=== PATIENT | female | born 1985 | race African-American/Black ===

== ENCOUNTER 2016-06-04 09:04 | Emergency (ER) | payer MEDICAID ==
[~2016-06-04] VITALS: Ht 157.5 cm; Wt 108.0 kg
[2016-06-04 12:27] VITALS: BP 138/93
[2016-06-04] MEDS ORDERED: cefTRIAXone W LIDOCAINE 1 GM IM IM ONE (14:15)
[2016-06-04] MEDS ORDERED: cefTRIAXone SOD 1,000 MG VL IM ONE (14:30)
== END 2016-06-04 14:55 | disposition home or self-care (01) ==
LOC: ER 09:04
DX: J02.9 Acute pharyngitis, unspecified (principal); E66.01 Morbid (severe) obesity due to excess calories; Z68.41 Body mass index [BMI] 40.0-44.9, adult; F17.210 Nicotine dependence, cigarettes, uncomplicated; Z88.6 Allergy status to analgesic agent
CPT/HCPCS: 96372; 99283; J0696

== ENCOUNTER 2017-05-09 16:55 | Emergency (ER) | payer MEDICAID ==
[~2017-05-09] VITALS: Ht 157.5 cm; Wt 106.6 kg
[2017-05-09 19:48] VITALS: BP 155/84
[2017-05-09] MEDS ORDERED: BACITRACIN TOP OINT 1 UD PKG TOP ONE (21:30)
== END 2017-05-09 21:26 | disposition home or self-care (01) ==
LOC: ER 16:58
DX: O26.891 Other specified pregnancy related conditions, first trimester (principal); J02.9 Acute pharyngitis, unspecified; O99.331 Smoking (tobacco) complicating pregnancy, first trimester; Z3A.01 Less than 8 weeks gestation of pregnancy
CPT/HCPCS: 36415; 84702

== ENCOUNTER 2017-10-19 19:58 | Observation (INO) | payer MEDICAID, OTHER ==
[2017-10-19 21:26] LABS: Urine Bacteria NONE SEEN /hpf (None Seen); Urine Blood 1+ /uL (Negative); Urine Mucus FEW (None Seen); Urine Specific Gravity 1.028 (1.001-1.035); Urine WBC 10 /hpf (0 - 5)
[2017-10-19 21:45] LABS: Alcohol, Urine < 3.0 mg/dL (0-5); Amphetamine Screen, Urine NEGATIVE (NEGATIVE); Barbiturate Scree,Urine NEGATIVE (NEGATIVE); Benzodiazephine Screen, Urine NEGATIVE (NEGATIVE); Cannabinoid Screen, Urine NEGATIVE (NEGATIVE); Cocaine Screen, Urine NEGATIVE (NEGATIVE); Opiate Scree,Urine NEGATIVE (NEGATIVE); Phencyclidine Screen, Urine NEGATIVE (NEGATIVE)
== END 2017-10-19 21:30 | disposition home or self-care (01) | DRG 566 ==
LOC: LDRP 19:58
PROVIDERS: ADMIT Specialist; ATTEND Specialist
DX: O26.853 Spotting complicating pregnancy, third trimester (principal); Z3A.28 28 weeks gestation of pregnancy
CPT/HCPCS: 59025; 80307; 81001; 81002; G0378

== ENCOUNTER 2018-12-16 12:47 | Emergency (ER) | payer MEDICAID, OTHER ==
[~2018-12-16] VITALS: Ht 157.5 cm; Wt 115.2 kg
[2018-12-16 14:05] LABS: Urine Bacteria FEW /hpf (None Seen); Urine Blood Negative /uL (Negative); Urine Mucus FEW (None Seen); Urine Specific Gravity 1.025 (1.001-1.035); Urine WBC 55 /hpf (0 - 5)
[2018-12-16 15:02] VITALS: BP 139/79
== END 2018-12-16 16:47 | disposition home or self-care (01) ==
LOC: ER 12:47
DX: J06.9 Acute upper respiratory infection, unspecified (principal); N39.0 Urinary tract infection, site not specified; F17.210 Nicotine dependence, cigarettes, uncomplicated; Z88.5 Allergy status to narcotic agent; Z88.8 Allergy status to other drugs, medicaments and biological substances; Z90.49 Acquired absence of other specified parts of digestive tract
CPT/HCPCS: 81001; 81025

== ENCOUNTER 2022-02-18 13:49 | Emergency (ER) | payer MEDICAID ==
[~2022-02-18] VITALS: Ht 157.5 cm; Wt 114.0 kg
[2022-02-18 15:33] LABS: Urine Specific Gravity 1.035 (1.001-1.035)
[2022-02-18 15:34] LABS: Urine Blood Normal /uL (Negative)
[2022-02-18 15:42] LABS: Basophils # (auto) 0.1 10 ^3/uL (0-0.2); Basophils % (auto) 0.7 % (0.0-2.0); Eosinophils # (auto) 0.3 10 ^3/uL (0-0.8); Eosinophils % (auto) 2.1 % (0.0-7.0); Hematocrit 36.9 % (36.0-46.0); Hemoglobin 12.5 g/dL (12.2-16.2); Lymphocytes # (auto) 2.5 10 ^3/uL (0.4-5.4); Lymphocytes % (auto) 20.7 % (10.0-50.0); Mean Corpuscular Hemoglobin 30.5 pg (28.0-32.0); Mean Corpuscular Hgb Conc. 33.8 g/dL (32.0-36.0); Mean Corpuscular Volume 90.4 fL (80.0-100.0); Monocytes # (auto) 0.9 10 ^3/uL (0-1.3); Neutrophils # (auto) 8.5 10 ^3/uL (1.6-8.6); Neutrophils % (auto) 69.5 % (37.0-80.0); Nucleated Red Blood Cells % 0.1 %; Red Blood Cells 4.08 10^6/uL (4.0-5.20); Red Cell Distribution Width 12.6 % (11.8-14.3); White Blood Cell 12.2 10^3/uL (4.4-10.8)
[2022-02-18] MEDS ORDERED: KETOROLAC TROMETH 60MG/2ML VIAL IM ONE (16:00)
[2022-02-18 16:04] LABS: Albumin 3.4 g/dL (3.4-5.0); BUN/Creatinine Ratio 24.6; Calcium 8.6 mg/dL (8.5-10.1); Potassium 3.5 mmol/L (3.5-5.1)
[2022-02-18 16:07] LABS: Bilirubin, Total 0.2 mg/dL (0.2-1.0); Total Protein 6.9 g/dL (6.4-8.2)
[2022-02-18] MEDS ORDERED: METR500T PO (16:55)
[2022-02-18] MEDS ORDERED: HYDR-4798 PO (16:55)
[2022-02-18] MEDS ORDERED: LEVO500T31 PO (16:55)
[2022-02-18 17:11] LABS: Urine Bacteria FEW /hpf (None Seen)
[2022-02-18 17:22] VITALS: BP 162/97
== END 2022-02-18 17:23 | disposition home or self-care (01) ==
LOC: ER 13:49
DX: K57.92 Diverticulitis of intestine, part unspecified, without perforation or abscess without bleeding (principal); F17.210 Nicotine dependence, cigarettes, uncomplicated; Z90.710 Acquired absence of both cervix and uterus
CPT/HCPCS: 36415; 74176; 80053; 81003; 81015; 85025; 96372; 99284; J1885

== ENCOUNTER 2022-06-13 18:57 | Emergency (ER) | payer MEDICAID ==
[~2022-06-13] VITALS: Ht 157.5 cm; Wt 113.0 kg
[~2022-06-13 18:57] MED LIST: HYDR-4798 PO; LEVO500T31 PO; METR500T PO
[2022-06-13 19:08] VITALS: BP 140/92
[2022-06-13] MEDS ORDERED: DexAMETHasone SOD PHOS 10MG/1ML VIAL INJ IM ONE (19:45)
[2022-06-13 19:49] LABS: Urine Bacteria NONE SEEN /hpf (None Seen); Urine Blood Negative /uL (Negative); Urine Mucus FEW (None Seen); Urine Specific Gravity 1.025 (1.001-1.035); Urine WBC 5 /hpf (0 - 5)
[2022-06-13] MEDS ORDERED: PRED20TA2 PO (21:28)
[2022-06-13] MEDS ORDERED: NITR-87 PO (21:28)
== END 2022-06-13 21:57 | disposition home or self-care (01) ==
LOC: ER 18:57
DX: R20.2 Paresthesia of skin (principal); N39.0 Urinary tract infection, site not specified; F17.210 Nicotine dependence, cigarettes, uncomplicated; Z90.49 Acquired absence of other specified parts of digestive tract; Z90.710 Acquired absence of both cervix and uterus; Z79.2 Long term (current) use of antibiotics; Z79.899 Other long term (current) drug therapy; Z88.5 Allergy status to narcotic agent
CPT/HCPCS: 72040; 81001; 96372; 99284; J1100

== ENCOUNTER 2024-10-04 05:23 | Inpatient (IN) | payer MEDICAID ==
[~2024-10-04] VITALS: Ht 157.5 cm; Wt 88.9 kg
[~2024-10-04 05:23] MED LIST changes: +NITR-87 PO; +PRED20TA2 PO
[2024-10-04 06:54] LABS: Hematocrit 40.6 % (36.0-46.0); Hemoglobin 14.2 g/dL (12.2-16.2); Mean Corpuscular Hemoglobin 32.2 pg (28.0-32.0); Mean Corpuscular Volume 92.2 fL (80.0-100.0); Nucleated Red Blood Cells % 0.0 %
--- NOTE | 2024-10-04 06:54 | ED.PDOC ---
GI ASSESSMENT HPI Comments 39 y/o F, presents to the ED for CC of abdominal pain. Patient states, she has been experiencing LLQ abdominal pain that radiates to her left lower back onset, yesterday (10/04/24). Patient relays, pain to be sharp and stabbing in nature. Patient comments, that she hs been unable to have a bowel movement in x2days. Patient denies fever, chills, dysuria, or hematuria. No other associated symptoms, modifiers, recent injuries or sick contacts present at this time. Chief Complaint: Abdominal Pain Time Seen by MD: 06:45 Primary Care Provider: unknown Reviewed Notes: Nurses Notes, Medications, Allergies Allergies: Coded Allergies: Codeine (Verified Allergy, Unknown, 12/16/18) Oxycodone (Verified Allergy, Unknown, 07/11/15) Uncoded Allergies: UNKNOWN ABX (Allergy, Unknown, 06/04/16) Home Meds Active Scripts Prednisone (Prednisone) 20 Mg Tab, 60 MG PO DAILY for 5 Days, #15 MG Prov:JAXSON ELLINGTON PAC 06/13/22 Nitrofurantoin Monohydrate Mac (Macrobid) 100 Mg Cap, 100 MG PO BID for 3 Days, #6 CAP Prov:JAXSON ELLINGTON PAC 06/13/22 Hydrocodone-Acetaminophen (Hydrocodone Bitartrate/AC 10-325 mg) 1 Tab Tab, 1 TAB PO Q6HPRN PRN, #20 TAB Prov:GIANNI EARL DO 02/18/22 Metronidazole (Flagyl) 500 Mg Tab, 500 MG PO TID for 10 Days, #30 TAB Prov:GIANNI EARL DO 02/18/22 Levofloxacin (Levaquin) 500 Mg Tab, 500 MG PO DAILY for 10 Days, #10 TAB Prov:GIANNI EARL DO 02/18/22 Information Source: Patient Mode of Arrival: Wheelchair Timing: Days Duration: Since onset Prehospital treatment: None Quality: Sharp, Stabbing Vomitus: Watery Stool: Watery Severity: Moderate Recent: None Recent Hx of: None Pain Location: LLQ Modifying Factors: Nothing Associated sign and symptoms: Nausea, Vomiting, Diarrhea, Abdominal Pain Past Medical History PAST MEDICAL HISTORY: Denies Surgical History: Appendectomy, Hysterectomy 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 History Family History Family History: Unknown Social History Smoker: Cigarettes, Less Than 1 Pack/Day Alcohol: Denies ETOH Use Drugs: Marijuana Lives In: Home Constitutional: denies: chills, diaphoresis, fatigue, fever, malaise, sweats, weakness, others EENTM: denies: blurred vision, double vision, ear bleeding, ear discharge, ear drainage, ear pain, ear ringing, eye pain, eye redness, hearing loss, mouth pain, mouth swelling, nasal discharge, nose bleeding, nose congestion, nose pain, photophobia, tearing, throat pain, throat swelling, voice changes, others Respiratory: denies: cough, hemoptysis, orthopnea, SOB at rest, shortness of breath, SOB with excertion, stridor, wheezing, others Cardiovascular: denies: chest pain, dizzy spells, diaphoresis, Dyspnea on exertion, edema, irregular heart beat, left arm pain, lightheadedness, palpitations, PND, syncope, others Gastrointestinal: reports: abdominal pain, diarrhea, nausea, vomiting; denies: abdomen distended, blood streaked bowels, constipated, dysphagia, difficulty swallowing, hematemesis, melena, poor appetite, poor fluid intake, rectal bleeding, rectal pain, others Genitourinary: denies: abnormal vagina bleeding, burning, dyspareunia, dysuria, flank pain, frequency, hematuria, incontinence, pain, , vagina discharge, urgency, others Neurological: denies: dizziness, fainting, headache, left sided numbness, left sided weakness, numbness, paresthesia, pre-existing deficit, right sided numbness, right sided weakness, seizure, speech problems, tingling, tremors, weakness, others Musculoskeletal: reports: back pain; denies: gout, joint pain, joint swelling, muscle pain, muscle stiffness, neck pain, others Integumetry: denies: bruises, change in color, change in hair/nails, dryness, laceration, lesions, lumps, rash, wounds, others Allergic/Immunocompromised: denies: Difficulty Healing, Frequent Infections, Hives, Itching, others Hematologic/Lymphatic: denies: anemia, blood clots, easy bleeding, easy bruising, swollen glands, others Endocrine: denies: excessive hunger, excessive sweating, excessive thirst, excessive urination, flushing, intolerance to cold, intolerance to heat, unexplained weight gain, unexplained weight loss, others Psychiatric: denies: anxiety, bipolar disorder, depression, hopeless, panic disorder, schizophrenia, sleepless, suicidal, others All Other Systems: Reviewed and Negative Physical Exam General Appearance: Moderate Distress HEENT: Pharynx Normal Neck: Normal Inspection Respiratory: No Respiratory Distress Cardiovascular: No Edema Breast Exam: Deferred Gastrointestinal: LLQ Genitalia: Deferred Pelvic: Deferred Rectal: Deferred Extremities: No pedal edema Neurologic: No Motor Deficits Cerebellar Function: NOT DONE Reflexes: NOT DONE Skin: Normal Color Lymphatic: NOT DONE Was a procedure done? Was a procedure done?: No GI differential Dx Differential Diagnosis: PID, Urolithiasis, Electrolyte Imbalance, Viral, Hypovolemia X-Ray, Labs, Meds, VS Vital Signs Date Time Temp Pulse Resp B/P (MAP) Pulse Ox O2 Delivery O2 Flow Rate FiO2 10/04/24 11:13 68 13 151/77 (101) 99 10/04/24 10:46 63 14 145/95 10/04/24 10:03 60 20 99 Room Air* 0 21 10/04/24 09:09 99 20 145/76 10/04/24 09:07 98.2 59 20 145/76 (99) 99 98.2 10/04/24 07:26 80 18 146/78 10/04/24 07:25 18 98 Room Air* 0 21 10/04/24 06:56 73 20 146/78 10/04/24 06:50 98.5 73 20 140/78 (98) 99 98.5 10/04/24 06:50 73 20 99 10/04/24 05:40 98.5 81 20 149/90 (109) 96 98.5 Lab Test 10/04/24 06:22 10/04/24 06:13 Range/Units White Blood Count 10.1 4.4-10.8 10^3/uL Red Blood Count 4.40 4.0-5.20 10^6/uL Hemoglobin 14.2 12.2-16.2 g/dL Hematocrit 40.6 36.0-46.0 % Mean Corpuscular Volume 92.2 80.0-100.0 fL Mean Corpuscular Hemoglobin 32.2 H 28.0-32.0 pg Mean Corpuscular Hemoglobin Concent 34.9 32.0-36.0 g/dL Red Cell Distribution Width 13.5 11.8-14.3 % Platelet Count 332 140-450 10^3/uL Mean Platelet Volume 8.5 6.9-10.8 fL Neutrophils (%) (Auto) 72.2 37.0-80.0 % Lymphocytes (%) (Auto) 21.6 10.0-50.0 % Monocytes (%) (Auto) 5.1 0.0-12.0 % Eosinophils (%) (Auto) 0.6 0.0-7.0 % Basophils (%) (Auto) 0.5 0.0-2.0 % Neutrophils # (Auto) 7.3 1.6-8.6 10 ^3/uL Lymphocytes # (Auto) 2.2 0.4-5.4 10 ^3/uL Monocytes # (Auto) 0.5 0-1.3 10 ^3/uL Eosinophils # (Auto) 0.1 0-0.8 10 ^3/uL Basophils # (Auto) 0 0-0.2 10 ^3/uL Nucleated Red Blood Cells 0.0 % Sodium Level 140 136-145 mmol/L Potassium Level 3.4 L 3.5-5.1 mmol/L Chloride Level 108 H 98-107 mmol/L Carbon Dioxide Level 23 20-31 mmol/L Anion Gap 9 5-15 Blood Urea Nitrogen 11 9-23 mg/dL Creatinine 0.63 0.550-1.02 mg/dL Glomerular Filtration Rate Calc 116 >90 mL/min BUN/Creatinine Ratio 17.5 10.0-20.0 Serum Glucose 92 74-106 mg/dL Lactic Acid Level 1.5 0.4-2.0 mmol/L Calcium Level 9.8 8.7-10.4 mg/dL Total Bilirubin 0.4 0.2-1.0 mg/dL Aspartate Amino Transferase (AST) 16 13-40 U/L Alanine Aminotransferase (ALT) 12 7-40 U/L Alkaline Phosphatase 54 46-116 U/L Total Protein 7.2 5.7-8.2 g/dL Albumin 4.8 3.2-4.8 g/dL Urine Color Yellow Yellow Urine Clarity Ex.turbid Clear Urine pH 6.0 5.0-9.0 Urine Specific [place] 1.033 1.001-1.035 Urine Protein 1+ H Negative Urine Ketones Trace Negative Urine Blood Negative Negative /uL Urine Nitrite Negative Negative Urine Bilirubin Negative Negative Urine Urobilinogen 3 H Negative mg/dL Urine Leukocyte Esterase 3+ Negative /uL Urine RBC 20 0 - 4 /hpf Urine Microscopic WBC 82 H 0-5 /HPF Urine Squamous Epithelial Cells Many <5 /hpf Urine Bacteria Few H None Seen /hpf Urine Mucus Many None Seen Urine Glucose Normal Normal mg/dL Urine Test Negative Negative Current Medications Medications (Trade) Dose Ordered Sig/Linh Route Start Time Stop Time Status Last Admin Sodium Chloride 1,000 ml @ 1,000 mls/hr Q1H ONCE IV 10/04/24 06:45 10/04/24 07:44 DC 10/04/24 06:55 Ondansetron HCl (Zofran) 4 mg ONCE ONCE IV 10/04/24 06:45 10/04/24 06:46 DC 10/04/24 06:56 Morphine Sulfate 4 mg ONCE ONCE IV 10/04/24 06:45 10/04/24 06:46 DC 10/04/24 06:56 Pantoprazole Sodium (Protonix) 40 mg ONCE ONCE IV 10/04/24 06:45 10/04/24 06:46 DC 10/04/24 06:55 Ketorolac Tromethamine (Toradol Injection) 15 mg ONCE ONCE IV 10/04/24 07:45 10/04/24 07:57 DC 10/04/24 07:59 Cefepime HCl 50 ml @ 12.5 mls/hr ONCE ONCE IV 10/04/24 07:45 10/04/24 11:44 DC 10/04/24 09:10 Haloperidol Lactate (Haldol) 10 mg ONCE ONCE IM 10/04/24 07:45 10/04/24 07:57 DC 10/04/24 08:04 Morphine Sulfate 4 mg ONCE ONCE IV 10/04/24 08:30 10/04/24 08:31 DC 10/04/24 09:[address] [address] Ph: [phone] DIAGNOSTIC IMAGING Diagnostic Imaging Report : [id number] Signed PATIENT: DON MONTEZCCT: [id number] UNIT: [id number] : 1985 LOC: ER ROOM / BED: / AGE / SEX: 39 / F ADM STATUS: REG ER SERVICE ORDERING PHYSICIAN: ALYCIA POOL MD PROCEDURE(s): ABPL - CT AB PEL WO CON-NO ORAL OR IV REASON: left flank pain ORDER NUMBER(s): [id number], ACCESSION NUMBER(s): [id number] CT CT AB PEL WO CON-NO ORAL OR IV INDICATION: left flank pain EXAM DATE: 10/04/2024 07:44 AM COMPARISON: CT ABD PELVIS WO CONTRAST on DOS: 02/18/22 RADIATION DOSE: CTDIvol: 19.73 mGy, DLP: 1067.58 mGy*cm PROCEDURE: Helical CT images were obtained of the abdomen and pelvis without IV contrast Sagittal and coronal reconstructions are provided. ORAL CONTRAST: None. ADDITIONAL IMAGES / REFORMATS: None All CT scans at this medical facility are performed using dose modulation techniques as appropriate to a performed exam including the following: Automated exposure control was utilized; adjustment of the MA and/or KV according to patient size; and use of iterative reconstruction technique. FINDINGS: LUNG BASE: Normal. LIVER: Normal. GALLBLADDER AND BILIARY TREE: No calcified gallstones. Normal caliber wall. No intra- or extrahepatic biliary ductal dilation. PANCREAS: Normal. SPLEEN: Normal. BOWEL: Moderate colonic diverticulosis with mild sigmoid colonic diverticulitis. ADRENALS: Normal. KIDNEYS AND URETER: Punctate nonobstructive left kidney stone. BLADDER: Normal. REPRODUCTIVE ORGANS: 5 cm left ovary cyst. Absent uterus. LYMPH NODES:No lymphadenopathy. PERITONEUM: No ascites or free air. No other fluid collection. VESSELS: Scattered atherosclerotic calcifications are noted. RETROPERITONEUM: Normal. ABDOMINAL WALL: Normal. BONES: Scattered osseous degenerative changes are noted. IMPRESSION: Moderate colonic diverticulosis with mild sigmoid colonic diverticulitis. Punctate nonobstructive left kidney stone. ATED BY: FRANCISCO J EASON MD DICTATED DATE/TIME: 10/04/24817 SIGNED BY: FRANCISCO J EASON MD SIGNED DATE/TIME: 10/04/24817 CC: Time of 1ST Reevaluation: 07:15 Reevaluation 1ST: Unchanged Patient Education/Counseling: Diagnosis, Treatment Family Education/Counseling: No Family Present SEPSIS Sepsis Screen Date sepsis recognized/suspect: Oct 04, 2024 Time Sepsis recognized/suspect: 0540 Recent Procedure: No On Antibiotic Therapy: No Respiratory Rate >20: No Heart Rate >90: No Temp<36 C (96.8 F) or >38.3 C: No SBP <90 or MAP <65 mmHG: No New Acute Mental Status Change: No Is the patient on CPAP, BIPAP,: No Physician Orders Ct Ab Pel Wo Con-No Oral Or Iv (10/04/24 07:42) Pelvic (10/04/24 08:24) Morphine Sulfate Injection (10/04/24 08:30) * Sprayer Operator Consultation (10/04/24 11:59) Vital Signs Date Time Temp Pulse Resp B/P (MAP) Pulse Ox O2 Delivery O2 Flow Rate FiO2 10/04/24 11:13 68 13 151/77 (101) 99 10/04/24 10:46 63 14 145/95 10/04/24 10:03 60 20 99 Room Air* 0 21 10/04/24 09:09 99 20 145/76 10/04/24 09:07 98.2 59 20 145/76 (99) 99 98.2 10/04/24 07:26 80 18 146/78 10/04/24 07:25 18 98 Room Air* 0 21 10/04/24 06:56 73 20 146/78 10/04/24 06:50 98.5 73 20 140/78 (98) 99 98.5 10/04/24 06:50 73 20 99 10/04/24 05:40 98.5 81 20 149/90 (109) 96 98.5 Laboratory Tests Test 10/04/24 06:22 Lactic Acid Level 1.5 mmol/L (0.4-2.0) White Blood Count 10.1 10^3/uL (4.4-10.8) Medications Medications Dose Ordered Sig/Linh Route Start Time Stop Time Status Last Admin Dose Admin Cefepime HCl 50 ml @ 12.5 mls/hr ONCE ONCE IV 10/04/24 07:45 10/04/24 11:44 DC 10/04/24 09:10 Haloperidol Lactate 10 mg ONCE ONCE IM 10/04/24 07:45 10/04/24 07:57 DC 10/04/24 08:04 Ketorolac Tromethamine 15 mg ONCE ONCE IV 10/04/24 07:45 10/04/24 07:57 DC 10/04/24 07:59 Morphine Sulfate 4 mg ONCE ONCE IV 10/04/24 06:45 10/04/24 06:46 DC 10/04/24 06:56 Morphine Sulfate 4 mg ONCE ONCE IV 10/04/24 08:30 10/04/24 08:31 MD 10/04/24 09:09 Ondansetron HCl 4 mg ONCE ONCE IV 10/04/24 06:45 10/04/24 06:46 DC 10/04/24 06:56 Pantoprazole Sodium 40 mg ONCE ONCE IV 10/04/24 06:45 10/04/24 06:46 DC 10/04/24 06:55 Sodium Chloride 1,000 ml @ 1,000 mls/hr Q1H ONCE IV 10/04/24 06:45 10/04/24 07:44 DC 10/04/24 06:55 Departure 1 Departure Time of Disposition: 12:01 (Patient presented with abdominal pain that was co ncerning for possible appendicits, gastritis, cholecystitis, colitis, gastroenteritis, sbo, or orther possible surgical emergency. Data: 1. I ordered and reviewed the result of at least 3 labs including a CBC, BMP, and Urinalysis. 2. I independently interpreted the following tests: CT Abdoment and Pelvis is concerning for complex cyst of the left ovary .Risk:This patient has a high risk of morbidity due to further diagnostic testing or treatment and may suffer from an acute abdominal process disorder. Workup reveals intractable abdominal pain and complex cyst of the left ovary and patient should be admitted for further workup. and possible expert consultation. ) Impression: Primary Impression: Complex cyst of left ovary Additional Impressions: Intractable abdominal pain Complicated UTI (urinary tract infection) Disposition: ADMITTED INPATIENT Admit to: Med Surg Condition: Serious Critical Care Note Critical Care Time?: Yes Critical care comment: Intractable abdominal pain Authorized and Performed by: Alycia Pool MD Total critical care time: Approximately 42 minutes Due to a high probability of clinically significant, life threatening deterioration, the patient required my highest level of preparedness to intervene emergently and I personally spent this critical care time directly and personally managing the patient. This critical care time included obtaining a history; examining the patient; pulse oximetry; ordering and review of studies; arranging urgent treatment with development of a management plan; evaluation of patient's response to treatment; frequent reassessment; and, discussions with other providers. This critical care time was performed to assess and manage the high probability of imminent, life-threatening deterioration that could result in multi-organ failure. It was exclusive of separately billable procedures and treating other patients and teaching time. Please see my other sections and the rest of the note for further information on patient assessment and treatment. Stability Stability form required: No Heart Score Heart Score: Heart Score Response (Comments) Value History N/A 0 EKG N/A 0 Age N/A 0 Risk Factors N/A 0 Troponin N/A 0 Total 0 I personally scribed for ALYCIA POOL MD ([email or web address]) on 10/04/24 at 06:54. Electronically submitted by Sarah Costa ([email or web address]). I personally scribed for ALYCIA POOL MD ([email or web address]) on 10/04/24 at 08:24. Electronically submitted by Sarah Costa ([email or web address]). ALYCIA POOL MD Oct 04, 2024 06:54
[2024-10-04] MEDS: PANTOPRAZOLE 40 MG/10 ML VIAL INJ IV ONE (06:55)
[2024-10-04] MEDS: SODIUM CHLORIDE 0.9% 1,000 ML IV ONE (06:55)
[2024-10-04] MEDS: ONDANSETRON HCL 4 MG/2 ML VIAL IV ONE ×2 (06:56→13:13)
[2024-10-04] MEDS: MORPHINE SULFATE 4 MG/ML SYR/VIAL IV ONE ×3 (06:56→13:14)
[2024-10-04 07:16] LABS: Alanine Aminotransferase 12 U/L (7-40); Alkaline Phosphatase 54 U/L (46-116); Anion Gap 9 (5-15); BUN/Creatinine Ratio 17.5 (10.0-20.0); Blood Urea Nitrogen 11 mg/dL (9-23); Calcium 9.8 mg/dL (8.7-10.4); Carbon Dioxide 23 mmol/L (20-31); Glucose 92 mg/dL (74-106); Sodium 140 mmol/L (136-145); Total Protein 7.2 g/dL (5.7-8.2)
[2024-10-04 07:17] LABS: Bilirubin, Total 0.4 mg/dL (0.2-1.0)
[2024-10-04 07:20] LABS: Albumin 4.8 g/dL (3.2-4.8); Chloride 108 mmol/L (98-107); Potassium 3.4 mmol/L (3.5-5.1)
[2024-10-04 07:25] VITALS: RESP 18; O2SAT 98
[2024-10-04 07:30] LABS: Urine Protein, UAD 1+ (Negative)
[2024-10-04] MEDS: KETOROLAC TROMETH 30 MG/ML 1ML VIAL IV ONE (07:59)
[2024-10-04] MEDS: HALOPERIDOL LACTATE 5 MG/ML INJ VIAL IM ONE (08:04)
--- NOTE | 2024-10-04 08:21 | DVH ---
CT CT AB PEL WO CON-NO ORAL OR IV INDICATION: left flank pain EXAM DATE: 10/04/2024 07:44 AM COMPARISON: CT ABD PELVIS WO CONTRAST on DOS: 02/18/22 RADIATION DOSE: CTDIvol: 19.73 mGy, DLP: 1067.58 mGy*cm PROCEDURE: Helical CT images were obtained of the abdomen and pelvis without IV contrast Sagittal and coronal reconstructions are provided. ORAL CONTRAST: None. ADDITIONAL IMAGES / REFORMATS: None All C T scans at this medical facility are performed using dose modulation techniques as appropriate to a p erformed exam including the following: Automated exposure control was utilized; adjustment of the MA and/or KV according to patient size; and use of iterative reconstruction technique. FINDINGS: LUNG BASE: Normal. LIVER: Normal. GALLBLADDER AND BILIARY TREE: No calcified gallstones. Normal caliber wall. No intra- or extrahepatic biliary ductal dilation. PANCREAS: Normal. SPLEEN: Normal. BOWEL: Moderate colonic diverticulosis with mild sigmoid colonic diverticulitis. ADRENALS: Normal. KIDNEYS AND URETER: Punctate nonobstructive left kidney stone. BLADDER: Normal. REPRODUCTIVE ORGANS: 5 cm left ovary cyst. Absent uterus. LYMPH NODES:No lymphadenopathy. PERITONEUM: No ascites or free air. No other fluid collection. VESSELS: Scattered atherosclerotic calcifications are noted. RETROPERITONEUM: Normal. ABDOMINAL WALL: Normal. BONES: Scattered osseous degenerative changes are noted. IMPRESSION: Moderate colonic diverticulosis with mild sigmoid colonic diverticulitis. Punctate nonobstructive left kidney stone.
[2024-10-04] MEDS: CEFEPIME 2GM/50ML NS 50 ML IV ONE (09:10)
[2024-10-04 10:03] VITALS: PULSE 60; RESP 18; RESP 20; O2SAT 98; O2SAT 99
--- NOTE | 2024-10-04 11:40 | DVH ---
Technique: Real-time ultrasound images through the pelvis using a transabdominal transducer. For bett er evaluation of the ovaries and endometrial stripe, an endovaginal transducer was used. Indication: left abdominal pain, larst cyst Comparison: None Findings: The uterus is nonvisualized. Right ovary nonvisualized. Left ovary measures 7.7 x 5 x 5.4 cm. Normal flow on color doppler images. There left ovarian cystic lesion measuring 6.5 cm with internal echoes. There is no significant free fluid in the pelvis. Impression: Complex appearing left ovarian cystic lesion with internal echoes measuring 6.5 cm. Recommend MRI pe lvis with and without contrast and inbound sales advisor consultation exclude an ovarian neoplasm/ complex cystic lesio n. Hysterectomy. Right ovary nonvisualized.
[2024-10-04] MEDS ORDERED: HYDROcodone-ACET 5/325MG TAB PO PRN (14:15)
[2024-10-04] MEDS ORDERED: ONDANSETRON HCL 4 MG/2 ML VIAL IV PRN (14:15)
[2024-10-04] MEDS ORDERED: ACETAMINOPHEN 325 MG TAB PO PRN (14:15)
[2024-10-04] MEDS ORDERED: DOCUSATE SOD 100 MG CAP PO PRN (14:15)
--- NOTE | 2024-10-04 14:24 | DVHHP2 ---
History of Present Illness Reason for Visit: Abdominal pain History of Present Illness Lauryn Hadley is a 39-year-old female with past medical history of diverticulosis, and colitis, who came to the hospital for abdominal pain. Patient states she has been experiencing LLQ pain since yesterday. He pain was worsening prompting her to come to the hospital. She has had a previous hysterectomy. Past Surgical History: Appendectomy, Hysterectomy, Other (Left wrist) Smoke: No ALCOHOL: none Drugs: Marijuana Lives: with Family Domestic Violence: Neg Review of Systems Constitutional: No: Fever, Chills, Sweats, Weakness, Malaise, Other Eyes: No: Pain, Vision change, Conjunctivae inflammation, Eyelid inflammation, Other, Redness ENT: No: Ear pain, Ear discharge, Nose pain, Nose discharge, Nose congestion, Mouth pain, Mouth swelling, Throat pain, Throat swelling, Other Respiratory: No: Cough, Dry, Shortness of breath, SOB with excertion, Wheezing, Hemoptysis, Pleuritic Pain, Sputum, Wheezing, Other Cardiovascular: No: Chest Pain, Palpitations, Orthopnea, Paroxysmal Noc. Dyspnea, Edema, Lt Headedness, Other Gastrointestinal: Abdominal Pain (LLQ); No: Nausea, Vomiting, Diarrhea, Constipation, Melena, Hematochezia, Other Genitourinary: No Dysuria, No Frequency, No Incontinence, No Hematuria, No Rete ntion, No Other Musculoskeletal: No: other, neck pain, shoulder pain, arm pain, back pain, hand pain, leg pain, foot pain Skin: No: Rash, Lesions, Jaundice, Bruising, Other Neurological: No: Weakness, Numbness, Incoordination, Change in speech, Confusion, Seizures, Other Allergies: Coded Allergies: Codeine (Verified Allergy, Unknown, 12/16/18) Oxycodone (Verified Allergy, Unknown, 07/11/15) Uncoded Allergies: UNKNOWN ABX (Allergy, Unknown, 06/04/16) Medications Current Medications Medications Dose Ordered Sig/Linh Route Start Time Stop Time Status Last Admin Dose Admin Acetaminophen/ Hydrocodone Bitart 1 tab Q4HP PRN PO 10/04/24 14:15 UNV Ondansetron HCl 4 mg Q4HP PRN IV 10/04/24 14:15 UNV Docusate Sodium 100 mg BIDPRN PRN PO 10/04/24 14:15 UNV Acetaminophen 650 mg Q6HP PRN PO 10/04/24 14:15 UNV Morphine Sulfate 2 mg Q4HPRN PRN IV 10/04/24 14:15 UNV Exam Vital Signs Vital Signs Date Time Temp Pulse Resp B/P (MAP) Pulse Ox O2 Delivery O2 Flow Rate FiO2 10/04/24 13:55 101 14 163/97 10/04/24 13:13 99 10/04/24 10:03 Room Air* 0 21 10/04/24 09:07 98.2 98.2 General Appearance: Alert, Oriented X3, Cooperative, mild distress HEENT: Atraumatic Respiratory: Clear to auscultation Cardiovascular: Regular rate, Normal S1, Normal S2, No murmurs Abdominal: Normal bowel sounds, Soft, No tenderness Extremities: No clubbing, No cyanosis, No edema, Normal pulses Skin: No rashes, No breakdown, No significant lesion Neuro: Normal gait, Normal speech, Strength at 5/5 X4 ext, Normal tone Psych/Mental Status: Mental status NL, Mood NL Labs/Xrays Labs Test 10/04/24 06:22 10/04/24 06:13 Range/Units White Blood Count 10.1 4.4-10.8 10^3/uL Red Blood Count 4.40 4.0-5.20 10^6/uL Hemoglobin 14.2 12.2-16.2 g/dL Hematocrit 40.6 36.0-46.0 % Mean Corpuscular Volume 92.2 80.0-100.0 fL Mean Corpuscular Hemoglobin 32.2 H 28.0-32.0 pg Mean Corpuscular Hemoglobin Concent 34.9 32.0-36.0 g/dL Red Cell Distribution Width 13.5 11.8-14.3 % Platelet Count 332 140-450 10^3/uL Mean Platelet Volume 8.5 6.9-10.8 fL Neutrophils (%) (Auto) 72.2 37.0-80.0 % Lymphocytes (%) (Auto) 21.6 10.0-50.0 % Monocytes (%) (Auto) 5.1 0.0-12.0 % Eosinophils (%) (Auto) 0.6 0.0-7.0 % Basophils (%) (Auto) 0.5 0.0-2.0 % Neutrophils # (Auto) 7.3 1.6-8.6 10 ^3/uL Lymphocytes # (Auto) 2.2 0.4-5.4 10 ^3/uL Monocytes # (Auto) 0.5 0-1.3 10 ^3/uL Eosinophils # (Auto) 0.1 0-0.8 10 ^3/uL Basophils # (Auto) 0 0-0.2 10 ^3/uL Nucleated Red Blood Cells 0.0 % Sodium Level 140 136-145 mmol/L Potassium Level 3.4 L 3.5-5.1 mmol/L Chloride Level 108 H 98-107 mmol/L Carbon Dioxide Level 23 20-31 mmol/L Anion Gap 9 5-15 Blood Urea Nitrogen 11 9-23 mg/dL Creatinine 0.63 0.550-1.02 mg/dL Glomerular Filtration Rate Calc 116 >90 mL/min BUN/Creatinine Ratio 17.5 10.0-20.0 Serum Glucose 92 74-106 mg/dL Lactic Acid Level 1.5 0.4-2.0 mmol/L Calcium Level 9.8 8.7-10.4 mg/dL Total Bilirubin 0.4 0.2-1.0 mg/dL Aspartate Amino Transferase (AST) 16 13-40 U/L Alanine Aminotransferase (ALT) 12 7-40 U/L Alkaline Phosphatase 54 46-116 U/L Total Protein 7.2 5.7-8.2 g/dL Albumin 4.8 3.2-4.8 g/dL Urine Color Yellow Yellow Urine Clarity Ex.turbid Clear Urine pH 6.0 5.0-9.0 Urine Specific [place] 1.033 1.001-1.035 Urine Protein 1+ H Negative Urine Ketones Trace Negative Urine Blood Negative Negative /uL Urine Nitrite Negative Negative Urine Bilirubin Negative Negative Urine Urobilinogen 3 H Negative mg/dL Urine Leukocyte Esterase 3+ Negative /uL Urine RBC 20 0 - 4 /hpf Urine Microscopic WBC 82 H 0-5 /HPF Urine Squamous Epithelial Cells Many <5 /hpf Urine Bacteria Few H None Seen /hpf Urine Mucus Many None Seen Urine Glucose Normal Normal mg/dL Urine Test Negative Negative CT CT AB PEL WO CON-NO ORAL OR IV FINDINGS: LUNG BASE: Normal. LIVER: Normal. GALLBLADDER AND BILIARY TREE: No calcified gallstones. Normal caliber wall. No intra- or extrahepatic biliary ductal dilation. PANCREAS: Normal. SPLEEN: Normal. BOWEL: Moderate colonic diverticulosis with mild sigmoid colonic diverticulitis. ADRENALS: Normal. KIDNEYS AND URETER: Punctate nonobstructive left kidney stone. BLADDER: Normal. REPRODUCTIVE ORGANS: 5 cm left ovary cyst. Absent uterus. LYMPH NODES:No lymphadenopathy. PERITONEUM: No ascites or free air. No other fluid collection. VESSELS: Scattered atherosclerotic calcifications are noted. RETROPERITONEUM: Normal. ABDOMINAL WALL: Normal. BONES: Scattered osseous degenerative changes are noted. IMPRESSION: Moderate colonic diverticulosis with mild sigmoid colonic diverticulitis. Punctate nonobstructive left kidney stone. Technique: Real-time ultrasound images through the pelvis using a transabdominal transducer. For better evaluation of the ovaries and endometrial stripe, an endovaginal transducer was used. Findings: The uterus is nonvisualized. Right ovary nonvisualized. Left ovary measures 7.7 x 5 x 5.4 cm. Normal flow on color doppler images. There left ovarian cystic lesion measuring 6.5 cm with internal echoes. There is no significant free fluid in the pelvis. Impression: Complex appearing left ovarian cystic lesion with internal echoes measuring 6.5 cm. Recommend MRI pelvis with and without contrast and motion picture camera lens technician consultation exclude an ovarian neoplasm/ complex cystic lesion. Hysterectomy. Right ovary nonvisualized. SEPSIS Sepsis Screen Date sepsis recognized/suspect: Oct 04, 2024 Time Sepsis recognized/suspect: 725 Recent Procedure: No On Antibiotic Therapy: No Respiratory Rate >20: No Heart Rate >90: No Temp<36 C (96.8 F) or >38.3 C: No SBP <90 or MAP <65 mmHG: No New Acute Mental Status Change: No Is the patient on CPAP, BIPAP,: No Physician Orders Ct Ab Pel Wo Con-No Oral Or Iv (10/04/24 07:42) Pelvic (10/04/24 08:24) Morphine Sulfate Injection (10/04/24 08:30) * Snout Puller Consultation (10/04/24 11:59) Admit (10/04/24 14:04) Code Status (10/04/24 14:04) Hydrocodone-Acet 5/325mg Tab ([place] 5/32 (10/04/24 14:15) Ondansetron Hcl (Zofran) (10/04/24 14:15) Docusate Sodium Capsule (Colace Capsule) (10/04/24 14:15) Complete Blood Count (10/05/24 04:00) Comprehensive Metabolic Panel (10/05/24 04:00) Condition: Serious (10/04/24 14:04) Acetaminophen Tablet (Tylenol Tablet) (10/04/24 14:15) Morphine Sulfate Injection (10/04/24 14:15) Regular Diet (10/04/24 Dinner) Vital Signs Date Time Temp Pulse Resp B/P (MAP) Pulse Ox O2 Delivery O2 Flow Rate FiO2 10/04/24 13:55 101 14 163/97 10/04/24 13:14 60 13 157/88 10/04/24 13:13 60 13 157/88 (111) 99 10/04/24 11:13 68 13 151/77 (101) 99 10/04/24 10:46 63 14 145/95 10/04/24 10:03 60 20 99 Room Air* 0 21 10/04/24 09:09 99 20 145/76 10/04/24 09:07 98.2 59 20 145/76 (99) 99 98.2 10/04/24 07:26 80 18 146/78 10/04/24 07:25 18 98 Room Air* 0 21 10/04/24 06:56 73 20 146/78 10/04/24 06:50 98.5 73 20 140/78 (98) 99 98.5 10/04/24 06:50 73 20 99 Laboratory Tests Test 10/04/24 06:22 Lactic Acid Level 1.5 mmol/L (0.4-2.0) White Blood Count 10.1 10^3/uL (4.4-10.8) Medications Medications Dose Ordered Sig/Linh Route Start Time Stop Time Status Last Admin Dose Admin Cefepime HCl 50 ml @ 12.5 mls/hr ONCE ONCE IV 10/04/24 07:45 10/04/24 11:44 DC 10/04/24 09:10 12.5 MLS/HR Haloperidol Lactate 10 mg ONCE ONCE IM 10/04/24 07:45 10/04/24 07:57 DC 10/04/24 08:04 10 MG Ketorolac Tromethamine 15 mg ONCE ONCE IV 10/04/24 07:45 10/04/24 07:57 DC 10/04/24 07:59 15 MG Morphine Sulfate 4 mg ONCE ONCE IV 10/04/24 06:45 10/04/24 06:46 DC 10/04/24 06:56 4 MG Morphine Sulfate 4 mg ONCE ONCE IV 10/04/24 08:30 10/04/24 08:31 DC 10/04/24 09:09 4 MG Morphine Sulfate 4 mg ONCE ONCE IV 10/04/24 12:45 10/04/24 12:46 DC 10/04/24 13:14 4 MG Ondansetron HCl 4 mg ONCE ONCE IV 10/04/24 06:45 10/04/24 06:46 DC 10/04/24 06:56 4 MG Ondansetron HCl 4 mg ONCE ONCE IV 10/04/24 12:45 10/04/24 12:46 DC 10/04/24 13:13 4 MG Pantoprazole Sodium 40 mg ONCE ONCE IV 10/04/24 06:45 10/04/24 06:46 DC 10/04/24 06:55 40 MG Sodium Chloride 1,000 ml @ 1,000 mls/hr Q1H ONCE IV 10/04/24 06:45 10/04/24 07:44 DC 10/04/24 06:55 1,000 MLS/HR Assessment/Plan Assessment/Plan Assessment: Complex cyst of left ovary, Hypokalemia, Plan: Admit to Med-Surg, GLOVE PAIRER consult, MRI of abdomen/pelvis, Pain management, Mange/Monitor electrolytes closely, Plan discussed with: Patient My Orders Orders - ANAND JULES DESKTOP SPECIALIST Procedure Category Date Status Time Admit ADMIT 10/04/24 Transmitted 14:04 Code Status CODE 10/04/24 Transmitted 14:04 Hydrocodone-Acet PHA 10/04/24 Logged 5/325mg Tab ([place] 14:15 Ondansetron Hcl PHA 10/04/24 Logged (Zofran) 14:15 Docusate Sodium PHA 10/04/24 Logged Capsule (Colace 14:15 Complete Blood Count LAB 10/05/24 Verified 04:00 Comprehensive LAB 10/05/24 Verified Metabolic Panel 04:00 Condition: Serious IVANA 10/04/24 In Process 14:04 Acetaminophen Tablet PHA 10/04/24 Logged (Tylenol Tablet) 14:15 Morphine Sulfate PHA 10/04/24 Logged Injection 14:15 Regular Diet DIET 10/04/24 Transmitted Dinner Date of Service: Oct 04, 2024 Billing Provider: ANAND JULES Common Visit Codes: [id number] INP/OBS CARE (MOD) ANAND JULES Oct 04, 2024 14:24
[2024-10-04] MEDS: GADOTERATE MEG 10 MMOL/20ml INJ (0.5MMOL/ml) IV ONE (14:25)
--- NOTE | 2024-10-04 15:37 | DVH ---
EXAM: MRI PELVIS WO W CONTRAST MRI HISTORY: ABNORMAL CT COMPARISON: US PELVIC on DOS: 10/04/24, CT abdomen and pelvis without contrast TECHNIQUE: Multiplanar, multisequence MRI was performed. Following IV administration of 10 cc of Gada vist postcontrast images were obtained sagittal axial and coronal T1 weighted images FINDINGS: On noncontrast images urinary bladder is smooth walled. The uterus is right-sided in position may be unit cornuate. No uterine masses. No endometrial thicke rafael. In the left adnexal region there is a 5.6 cm cystic lesion containing dependent sediment. This shows thin rim enhancement on postcontrast images. No masses seen in the right adnexal region. Trace amount of fluid is seen in the right cul-de-sac and adnexal region. Sigmoid diverticulosis is present IMPRESSION: 1. There is a 5.6 cm cystic lesion containing dependent sediment most likely hemorrhagic cyst. Small amount of free fluid is present possibly due to partial cyst rupture.
[2024-10-04] MEDS: POTASSIUM CHL 20 Meq TABLET PO ONE (16:09)
[2024-10-04 17:05] VITALS: BP 140/75; PULSE 59; PULSE 75; RESP 12; RESP 18; TEMP 98.7; O2SAT 95; O2SAT 98
--- NOTE | 2024-10-04 17:13 | DVHINCON2 ---
Date of service: Oct 04, 2024 Reason for Consultation Ovarian cyst History of Present Illness HPI 39y AA female, TABx1. Hx history of Colitis/Diverticulosis Admitted w/ acute abdominal pain x 2 days. Pain is associated with N/V, no fever or diarrhea. Pain was initially dull in LLQ and then sharp pain for the last 24hr. She was told before approximately 6 months ago of having an "ovarian cyst". Imaging shows a complex left ovarian lesion 5.6 to 6.5 cm on in size (US vs MRI) suggesting a hemorrhagic cyst Hx of prior Hysterectomy for "prolapse" and Appendectomy. Pain is currently mild to moderate. Home Meds Discontinued Scripts Prednisone (Prednisone) 20 Mg Tab, 60 MG PO DAILY for 5 Days, #15 MG Prov:JAXSON ELLINGTON PAC 06/13/22 Nitrofurantoin Monohydrate Mac (Macrobid) 100 Mg Cap, 100 MG PO BID for 3 Days, #6 CAP Prov:JAXSON ELLINGTON PAC 06/13/22 Hydrocodone-Acetaminophen (Hydrocodone Bitartrate/AC 10-325 mg) 1 Tab Tab, 1 TAB PO Q6HPRN PRN, #20 TAB Prov:GIANNI EARL DO 02/18/22 Metronidazole (Flagyl) 500 Mg Tab, 500 MG PO TID for 10 Days, #30 TAB Prov:GIANNI EARL DO 02/18/22 Levofloxacin (Levaquin) 500 Mg Tab, 500 MG PO DAILY for 10 Days, #10 TAB Prov:GIANNI EARL DO 02/18/22 Past Medical History Cardiac: No pertinent Hx Pulmonary: No pertinent Hx Central Nervous System: No pertinent Hx GI: No pertinent Hx Hemotology/Oncology: No pertinent Hx Hepatobiliary: No pertinent Hx Psychiatric: No pertinent Hx Musculoskeletal: No pertinent Hx Rheumotologic: No pertinent Hx Infectious Disease: No peritnent Hx ENT: No pertinent Hx Renal/: No pertinent Hx Endocrine: No pertinent Hx Dermatology: No pertinent Hx Past Surgical History: Appendectomy, Hysterctomy Family History: No pertinent Hx Smoker: Other (Used Tobacco with Marijuana together) Alocohol: Rare Drugs: Marijuana Lives with: With family Review of Systems Constitutional: No symptom reported Ears, Nose, & Throat: No symptom reported Eyes: No symptom reported Pulmonary/Respiratory: No symptom reported Cardiovascular: No symptom reported Gastrointestinal: Nausea, Vomiting, Abdominal Pain Genitourinary: No symptom reported Musculoskeletal: No symptom reported Skin: No symptom reported Psychiatric: No symptom reported Endocrine: No symptom reported Hemotologic/Lymphatic: No symptom reported H&P Exam Vital Signs Vital Signs Date Time Temp Pulse Resp B/P (MAP) Pulse Ox O2 Delivery O2 Flow Rate FiO2 10/04/24 15:10 59 12 142/79 (100) 98 10/04/24 10:03 Room Air* 0 21 10/04/24 09:07 98.2 98.2 General Appeara: Well developed, Well nourished, Normal Appearance, Mild distress Head Exam: Normal inspection Neck Exam: Normal inspection Eye Exam: bilateral eye PERRL Pulmonary/Respiratory: Normal inspection Cardiovascular/Chest: Normal inspection Abdominal Exam: Soft, No masses, Other (Diffusely tender in LLQ and RLQ, no rebound. 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 For better evaluation of the ovaries and endometrial stripe, an endovaginal transducer was used. Indication: left abdominal pain, larst cyst Comparison: None Findings: The uterus is nonvisualized. Right ovary nonvisualized. Left ovary measures 7.7 x 5 x 5.4 cm. Normal flow on color doppler images. There left ovarian cystic lesion measuring 6.5 cm with internal echoes. There is no significant free fluid in the pelvis. Impression: Complex appearing left ovarian cystic lesion with internal echoes measuring 6.5 cm. Recommend MRI pelvis with and without contrast and glazing machine operator consultation exclude an ovarian neoplasm/ complex cystic lesion. Hysterectomy. Right ovary nonvisualized. ATED BY: BHANU ELENA MD DICTATED DATE/TIME: 10/04/24 1141 Labs Test 10/04/24 06:22 10/04/24 06:13 Range/Units White Blood Count 10.1 4.4-10.8 10^3/uL Red Blood Count 4.40 4.0-5.20 10^6/uL Hemoglobin 14.2 12.2-16.2 g/dL Hematocrit 40.6 36.0-46.0 % Mean Corpuscular Volume 92.2 80.0-100.0 fL Mean Corpuscular Hemoglobin 32.2 H 28.0-32.0 pg Mean Corpuscular Hemoglobin Concent 34.9 32.0-36.0 g/dL Red Cell Distribution Width 13.5 11.8-14.3 % Platelet Count 332 140-450 10^3/uL Mean Platelet Volume 8.5 6.9-10.8 fL Neutrophils (%) (Auto) 72.2 37.0-80.0 % Lymphocytes (%) (Auto) 21.6 10.0-50.0 % Monocytes (%) (Auto) 5.1 0.0-12.0 % Eosinophils (%) (Auto) 0.6 0.0-7.0 % Basophils (%) (Auto) 0.5 0.0-2.0 % Neutrophils # (Auto) 7.3 1.6-8.6 10 ^3/uL Lymphocytes # (Auto) 2.2 0.4-5.4 10 ^3/uL Monocytes # (Auto) 0.5 0-1.3 10 ^3/uL Eosinophils # (Auto) 0.1 0-0.8 10 ^3/uL Basophils # (Auto) 0 0-0.2 10 ^3/uL Nucleated Red Blood Cells 0.0 % Sodium Level 140 136-145 mmol/L Potassium Level 3.4 L 3.5-5.1 mmol/L Chloride Level 108 H 98-107 mmol/L Carbon Dioxide Level 23 20-31 mmol/L Anion Gap 9 5-15 Blood Urea Nitrogen 11 9-23 mg/dL Creatinine 0.63 0.550-1.02 mg/dL Glomerular Filtration Rate Calc 116 >90 mL/min BUN/Creatinine Ratio 17.5 10.0-20.0 Serum Glucose 92 74-106 mg/dL Lactic Acid Level 1.5 0.4-2.0 mmol/L Calcium Level 9.8 8.7-10.4 mg/dL Total Bilirubin 0.4 0.2-1.0 mg/dL Aspartate Amino Transferase (AST) 16 13-40 U/L Alanine Aminotransferase (ALT) 12 7-40 U/L Alkaline Phosphatase 54 46-116 U/L Total Protein 7.2 5.7-8.2 g/dL Albumin 4.8 3.2-4.8 g/dL Urine Color Yellow Yellow Urine Clarity Ex.turbid Clear Urine pH 6.0 5.0-9.0 Urine Specific [place] 1.033 1.001-1.035 Urine Protein 1+ H Negative Urine Ketones Trace Negative Urine Blood Negative Negative /uL Urine Nitrite Negative Negative Urine Bilirubin Negative Negative Urine Urobilinogen 3 H Negative mg/dL Urine Leukocyte Esterase 3+ Negative /uL Urine RBC 20 0 - 4 /hpf Urine Microscopic WBC 82 H 0-5 /HPF Urine Squamous Epithelial Cells Many <5 /hpf Urine Bacteria Few H None Seen /hpf Urine Mucus Many None Seen Urine Glucose Normal Normal mg/dL Urine Test Negative Negative Assessment/Plan Admitting Diagnosis: Acute abdominal pain Left complex ovarian cyst 5.6 cm suggestive of hemorrhagic cyst on MRI Plan No clinical or radiological evidence of cyst rupture or torsion, therefore surgery not indicated at this time. Most hemorrhagic cysts are physiological and can be treated conservatively Other lesions such as endometriomas or mucinous cystadenomas can present similarly and are in the DDX Recommend : Draw tumor markers (CEA, CA 125, Beta-HCG quant, HE4, LDH, AFP tumor marker, and Inhibin A&B) Manage pain and observe for worsening symptoms or growth of lesion, recommended repeat Pelvic US in 6-8 weeks Can follow up outpatient [facility] for follow up [facility] will sign off Thank you for allowing me to participate in the care of this patient. Plan discussed with: Patient Date of Service: Oct 04, 2024 Billing Provider: DC VILLALPANDO DO Common Visit Codes: CONSULT ONLY Consultation Codes: [id number] CONSULT <60MIN DC VILLALPANDO DO Oct 04, 2024 17:13
[2024-10-04] MEDS: MORPHINE SULFATE INJ 2 MG/ml SYRG IV PRN (17:41)
[2024-10-04 20:00] VITALS: PULSE 102; RESP 18; O2SAT 100
[2024-10-04 21:00] VITALS: BP 147/90; PULSE 102; RESP 18; TEMP 97.8; O2SAT 100
[2024-10-04] MEDS: TEMAZEPAM 15 MG CAP PO ONE (22:07)
[2024-10-05 01:00] VITALS: BP 158/87; PULSE 58; RESP 18; TEMP 98.2; O2SAT 98
[2024-10-05 05:00] VITALS: BP 151/88; PULSE 60; RESP 19; TEMP 97.9; O2SAT 100
[2024-10-05 06:15] LABS: Hematocrit 38.5 % (36.0-46.0); Hemoglobin 13.4 g/dL (12.2-16.2); Mean Corpuscular Hemoglobin 31.9 pg (28.0-32.0); Mean Corpuscular Volume 92.0 fL (80.0-100.0); Nucleated Red Blood Cells % 0.1 %
[2024-10-05 06:23] LABS: Alanine Aminotransferase 10 U/L (7-40); Albumin 4.5 g/dL (3.2-4.8); Alkaline Phosphatase 55 U/L (46-116); Anion Gap 10 (5-15); BUN/Creatinine Ratio 14.0 (10.0-20.0); Calcium 9.0 mg/dL (8.7-10.4); Carbon Dioxide 22 mmol/L (20-31); Glucose 98 mg/dL (74-106); Magnesium 2.1 mg/dL (1.6-2.6); Sodium 139 mmol/L (136-145); Total Protein 6.7 g/dL (5.7-8.2)
[2024-10-05 06:24] LABS: Bilirubin, Total 0.6 mg/dL (0.2-1.0)
[2024-10-05 06:26] LABS: Blood Urea Nitrogen 7 mg/dL (9-23); Chloride 107 mmol/L (98-107); Potassium 3.1 mmol/L (3.5-5.1)
[2024-10-05 08:00] VITALS: PULSE 89; RESP 18; O2SAT 100
[2024-10-05 08:19] LABS: Beta HCG, Quantitative 0.5 mIU/mL (1.5-4.2)
[2024-10-05 09:00] VITALS: BP 121/76; PULSE 61; RESP 19; TEMP 98.4; O2SAT 96
[2024-10-05] MEDS ORDERED: NITR-87 PO (11:32)
[2024-10-05] MEDS ORDERED: LEVO500T91 PO (11:36)
[2024-10-05] MEDS ORDERED: METR-344 PO (11:36)
--- NOTE | 2024-10-05 11:36 | DVHDS2 ---
Discharge Summary Date of Admission Oct 04, 2024 at 14:04 Date of Discharge: Oct 05, 2024 Labs/Diagnostic Data: Laboratory Results Test 10/05/24 05:24 10/04/24 06:22 10/04/24 06:13 White Blood Count 12.0 10^3/uL (4.4-10.8) Red Blood Count 4.19 10^6/uL (4.0-5.20) Hemoglobin 13.4 g/dL (12.2-16.2) Hematocrit 38.5 % (36.0-46.0) Mean Corpuscular Volume 92.0 fL (80.0-100.0) Mean Corpuscular Hemoglobin 31.9 pg (28.0-32.0) Mean Corpuscular Hemoglobin Concent 34.7 g/dL (32.0-36.0) Red Cell Distribution Width 13.1 % (11.8-14.3) Platelet Count 313 10^3/uL (140-450) Mean Platelet Volume 8.8 fL (6.9-10.8) Neutrophils (%) (Auto) 80.6 % (37.0-80.0) Lymphocytes (%) (Auto) 14.2 % (10.0-50.0) Monocytes (%) (Auto) 4.8 % (0.0-12.0) Eosinophils (%) (Auto) 0.1 % (0.0-7.0) Basophils (%) (Auto) 0.3 % (0.0-2.0) Neutrophils # (Auto) 9.7 10 ^3/uL (1.6-8.6) Lymphocytes # (Auto) 1.7 10 ^3/uL (0.4-5.4) Monocytes # (Auto) 0.6 10 ^3/uL (0-1.3) Eosinophils # (Auto) 0 10 ^3/uL (0-0.8) Basophils # (Auto) 0 10 ^3/uL (0-0.2) Nucleated Red Blood Cells 0.1 % Sodium Level 139 mmol/L (136-145) Potassium Level 3.1 mmol/L (3.5-5.1) Chloride Level 107 mmol/L (98-107) Carbon Dioxide Level 22 mmol/L (20-31) Anion Gap 10 (5-15) Blood Urea Nitrogen 7 mg/dL (9-23) Creatinine 0.50 mg/dL (0.550-1.02) Glomerular Filtration Rate Calc 123 mL/min (>90) BUN/Creatinine Ratio 14.0 (10.0-20.0) Serum Glucose 98 mg/dL (74-106) Calcium Level 9.0 mg/dL (8.7-10.4) Magnesium Level 2.1 mg/dL (1.6-2.6) Total Bilirubin 0.6 mg/dL (0.2-1.0) Aspartate Amino Transferase (AST) 13 U/L (13-40) Alanine Aminotransferase (ALT) 10 U/L (7-40) Alkaline Phosphatase 55 U/L (46-116) Lactate Dehydrogenase 221 U/L (120-246) Total Protein 6.7 g/dL (5.7-8.2) Albumin 4.5 g/dL (3.2-4.8) Carcinoembryonic Antigen < 0.50 ng/mL (<=5.0) Beta HCG, Quantitative 0.5 mIU/mL (1.5-4.2) Lactic Acid Level 1.5 mmol/L (0.4-2.0) Urine Color Yellow (Yellow) Urine Clarity Ex.turbid (Clear) Urine pH 6.0 (5.0-9.0) Urine Specific [place] 1.033 (1.001-1.035) Urine Protein 1+ (Negative) Urine Ketones Trace (Negative) Urine Blood Negative /uL (Negative) Urine Nitrite Negative (Negative) Urine Bilirubin Negative (Negative) Urine Urobilinogen 3 mg/dL (Negative) Urine Leukocyte Esterase 3+ /uL (Negative) Urine RBC 20 /hpf (0 - 4) Urine Microscopic WBC 82 /HPF (0-5) Urine Squamous Epithelial Cells Many /hpf (<5) Urine Bacteria Few /hpf (None Seen) Urine Mucus Many (None Seen) Urine Glucose Normal mg/dL (Normal) Urine Test Negative (Negative) Other Laboratory Tests 10/05/24 05:24 Brief Hx & Hospital Course: SEE DICTATED NOTE Condition at Discharge: Fair Final Diagnosis/Problems List ABD PAIN Discharge Disposition: Home Discharge Instruct/Medications Diet: Cardiac 2g Na,low cholest Activity: No Restrictions, As Tolerated Follow Up/Referral: FU WITH PCP/[facility] IN 1 WK Medications: SCRIPT TO PHARMACY Scheduled Levofloxacin Hemihydrate (Levaquin 500 Mg), 500 MG PO DAILY Metronidazole (Flagyl), 1 TAB PO TID Discontinued Medications Hydrocodone-Acetaminophen (Hydrocodone Bitartrate/AC 10-325 mg), 1 TAB PO Q6HPRN PRN Levofloxacin (Levaquin), 500 MG PO DAILY Metronidazole (Flagyl), 500 MG PO TID Nitrofurantoin Monohydrate Mac (Macrobid), 100 MG PO BID Prednisone (Prednisone), 60 MG PO DAILY Discharge Statement: "Patient was advised to return to the ER or call 911 if any headaches, dizziness, shortness of breath, chest pain, abdominal pain, bleeding, fevers, or worsening of medical condition. Patient was counseled about treatment plan, medications, possible side effects, patientverbalized understanding. All questions were answered to the best of my ability. This discharge took greater then 30 minutes in planning, reviewing documentation, counseling the patient, and discussing with other team members." ASSESSMENT ASSESSMENT Assessment ABD PAIN Date of Service: Oct 05, 2024 Billing Provider: OVIDIO ALMEIDA MD Common Visit Codes: [id number] DISCH DAY >30min OVIDIO ALMEIDA MD Oct 05, 2024 11:36
--- NOTE | 2024-10-05 11:56 | DVHDS ---
DATE OF DISCHARGE: 10/05/2024 HISTORY OF PRESENT ILLNESS: The patient is a 39-year-old lady who is admitted with complaints of pain in the left lower quadrant and has previous history of diverticulosis and colitis. HOSPITAL COURSE: The patient had a CT of abdomen and pelvis that showed evidence of moderate colonic diverticulosis with mild sigmoid colonic diverticulitis. The patient had a pelvic MRI that showed a 5.6 cm cystic lesion containing dependent sediment. She was seen in [facility] in consult by Dr. C[place] where it was recommended that the patient follow up outpatient with [facility]. The patient also had evidence of urinary tract infection. Her CA level is currently negative. The rest of the tumor markers are pending. The patient now wishes to go home and will be discharged home to be on Levaquin 500 mg daily for 7 days with Flagyl 500 mg t.i.d. for 7 days and will also be given a copy of her MRI report and will follow up with her primary care and [facility]. FINAL DIAGNOSES: Therefore; * Abdominal pain with mild acute diverticulitis. * UTI. * Obesity. * Left-sided complex ovarian cyst. Time spent in discharge planning and review of plan with the patient and nursing was 38 minutes. MD STEPHANIE Dominguez/ROSCOE TID: [id number] RECEIPT: [id number]
[2024-10-05] MEDS: POTASSIUM CHL 20 Meq TABLET PO ONE (12:04)
[2024-10-05 12:07] VITALS: BP 158/97; PULSE 76; RESP 19; TEMP 98.3; O2SAT 100
[2024-10-05 12:36] VITALS: BP 127/87; PULSE 72; RESP 19; TEMP 98.3; O2SAT 100
== END 2024-10-05 12:45 | disposition home or self-care (01) | DRG 244 ==
LOC: ER 05:23 → OVERFLOW 14:04 → EAST 18:17
PROVIDERS: ADMIT Internal Medicine; ATTEND Internal Medicine
DX: K57.32 Diverticulitis of large intestine without perforation or abscess without bleeding (principal); E66.9 Obesity, unspecified; Z68.35 Body mass index [BMI] 35.0-35.9, adult; E87.6 Hypokalemia; N83.292 Other ovarian cyst, left side; N39.0 Urinary tract infection, site not specified; F17.210 Nicotine dependence, cigarettes, uncomplicated; Z90.710 Acquired absence of both cervix and uterus; Z88.5 Allergy status to narcotic agent; Z90.49 Acquired absence of other specified parts of digestive tract
CPT/HCPCS: 36415; 73723; 74176; 76856; 80053; 81001; 81025; 82105; 82378; 83605; 83615; 83735; 84702; 85025; 86304; 96365; 96372; 96375; 99291; G0378; J1885; J2405; J2470